=== PATIENT | female | born 1950 | race Caucasian/White ===

== ENCOUNTER 2020-09-02 18:31 | Inpatient (IN) | payer MEDICARE, OTHER ==
[~2020-09-02] VITALS: Ht 165.1 cm; Wt 60.3 kg
[2020-09-02 19:11] LABS: Basophils # (auto) 0.1 10 ^3/uL (0-0.2); Basophils % (auto) 0.9 % (0.0-2.0); Eosinophils # (auto) 0 10 ^3/uL (0-0.8); Eosinophils % (auto) 0.1 % (0.0-7.0); Hematocrit 32.9 % (36.0-46.0); Hemoglobin 10.9 g/dL (12.2-16.2); Lymphocytes # (auto) 0.2 10 ^3/uL (0.4-5.4); Lymphocytes % (auto) 1.4 % (10.0-50.0); Mean Corpuscular Hemoglobin 30.5 pg (28.0-32.0); Mean Corpuscular Hgb Conc. 33.1 g/dL (32.0-36.0); Mean Corpuscular Volume 92.1 fL (80.0-100.0); Monocytes # (auto) 0.5 10 ^3/uL (0-1.3); Monocytes % (auto) 3.7 % (0.0-12.0); Neutrophils # (auto) 12.5 10 ^3/uL (1.6-8.6); Neutrophils % (auto) 93.9 % (37.0-80.0); Platelet Count (auto) 237 10^3/uL (140-450); Red Blood Cells 3.58 10^6/uL (4.0-5.20); White Blood Cell 13.4 10^3/uL (4.4-10.8)
[2020-09-02 19:47] LABS: Albumin 3.3 g/dL (3.4-5.0); Anion Gap 11 (5-15); Blood Urea Nitrogen 22 mg/dL (7-18); Calcium 9.4 mg/dL (8.5-10.1); Carbon Dioxide 22 mmol/L (21-32); Chloride 96 mmol/L (98-107); Glucose 119 mg/dL (74-106); Potassium 3.6 mmol/L (3.5-5.1); Sodium 129 mmol/L (136-145)
[2020-09-02 19:54] LABS: Alanine Aminotransferase 18 U/L (13-56); Alkaline Phosphatase 49 U/L (45-117); Aspartate Aminotransferase 32 U/L (15-37); BUN/Creatinine Ratio 16.5; Bilirubin, Total 0.6 mg/dL (0.2-1.0); GFR African American 50 mL/min; GFR Non-African American 42 mL/min; Total Protein 6.9 g/dL (6.4-8.2)
[2020-09-02] MEDS ORDERED: cefTRIAXone 1GM/50ML D5W 50 ML IV ONE (20:15)
[2020-09-02] MEDS ORDERED: SODIUM CHLORIDE 0.9% 1,000 ML IV ONE (20:15)
[2020-09-02 20:47] LABS: Urine Bacteria FEW /hpf (None Seen); Urine Blood Negative /uL (Negative); Urine Specific Gravity 1.011 (1.001-1.035); Urine WBC 4 /hpf (0 - 5)
[2020-09-02] MEDS ORDERED: ACETAMINOPHEN 500 MG TAB PO PRN (22:30)
[2020-09-02] MEDS ORDERED: ACETAMINOPHEN 650 mg PER 20.3 mL UD GT ONE (22:30)
[2020-09-02] MEDS ORDERED: ACETAMINOPHEN 325 MG TAB PO ONE (22:30)
[2020-09-02] MEDS ORDERED: NITROGLYCERIN 0.4 MG SL TAB SL PRN (22:30)
[2020-09-02] MEDS ORDERED: DOCUSATE SOD 100 MG CAP PO PRN (22:30)
[2020-09-02] MEDS ORDERED: MORPHINE SULF INJ 2 MG/ML SYRINGE 1ML IV PRN (22:30)
[2020-09-02] MEDS ORDERED: SODIUM CHLORIDE 0.9% 1,000 ML IV SCH (22:30)
[2020-09-02 23:26] VITALS: BP 119/77
--- NOTE | 2020-09-02 23:26 | NUR ---
Telemetry admit from ER to [facility]- Unit BARRERA OLSEN admitted to Telemetry unit. Patient oriented to MARS AKHTAR, primary RN, unit, room, bed, and unit policies regarding patient care and visiting hours. Patient now on continuous telemetry monitoring, tele box # 6 and telemetry reading on arrival to unit is sinus tachycardiac. Patient is alert and oriented x4. Patient was able to ambulate from wheelchair to bed with stand by assistance. Patient reports chest tightness when breathing. Patient denies shortness of breath at this time. Patient is on 2L/min NC, SPO2: 96% at this time. No sign/symptoms of distress noted or verbalized at this time. Instructed on plan of care and encouraged patient to call for assistance as needed, patient verbalized understanding. Bed is locked in lowest position, side rails x 2 are up, call light is within reach, and bed alarm is on.
--- NOTE | 2020-09-02 23:40 | NUR ---
HOME MEDICATIONS [facility]. POM wristband placed on patient.
[2020-09-03] MEDS: HYDROcodone-ACET 5/325MG TAB PO PRN ×2 (00:05→04:40)
[2020-09-03] MEDS ORDERED: BUDE2SUS3 IN (00:29)
[2020-09-03] MEDS ORDERED: FERR18TA2 PO (00:29)
[2020-09-03] MEDS ORDERED: IBUP100S11 PO (00:29)
[2020-09-03] MEDS ORDERED: FENO145T27 PO (00:29)
[2020-09-03] MEDS ORDERED: LISI-285 PO (00:29)
[2020-09-03] MEDS ORDERED: ALBU2TAB4 IN (00:34)
[2020-09-03 00:37] VITALS: BP 119/77
--- NOTE | 2020-09-03 03:44 | NUR ---
PULMONARY CONSULT WAS ORDERED FOR DR. OMALLEY BUT SHE IS NOT CONSULTING TILL FRIDAY. DR. Gini MCCULLOGUH WAS CONSULTED INSTEAD.
[2020-09-03 05:00] VITALS: BP 98/60
[2020-09-03 05:08] LABS: Basophils # (auto) 0.1 10 ^3/uL (0-0.2); Basophils % (auto) 0.9 % (0.0-2.0); Eosinophils # (auto) 0 10 ^3/uL (0-0.8); Eosinophils % (auto) 0.1 % (0.0-7.0); Hematocrit 30.3 % (36.0-46.0); Hemoglobin 10.3 g/dL (12.2-16.2); Lymphocytes # (auto) 0.2 10 ^3/uL (0.4-5.4); Mean Corpuscular Hemoglobin 31.6 pg (28.0-32.0); Mean Corpuscular Hgb Conc. 34.2 g/dL (32.0-36.0); Mean Corpuscular Volume 92.5 fL (80.0-100.0); Monocytes # (auto) 0.8 10 ^3/uL (0-1.3); Neutrophils # (auto) 9.7 10 ^3/uL (1.6-8.6); Nucleated Red Blood Cells % 0.4 %; Platelet Count (auto) 222 10^3/uL (140-450); Red Blood Cells 3.27 10^6/uL (4.0-5.20); Red Cell Distribution Width 13.1 % (11.8-14.3); White Blood Cell 10.8 10^3/uL (4.4-10.8)
[2020-09-03 05:24] LABS: Albumin 2.8 g/dL (3.4-5.0); Calcium 8.7 mg/dL (8.5-10.1); Potassium 3.8 mmol/L (3.5-5.1)
[2020-09-03 05:29] LABS: BUN/Creatinine Ratio 18.2; Bilirubin, Total 0.5 mg/dL (0.2-1.0)
[2020-09-03] MEDS ORDERED: ALBUTEROL SULF HFA 90MCG INH 200DOSE IN SCH (06:00)
[2020-09-03] MEDS: MORPHINE SULFATE 4 MG/ML SYR/VIAL IV PRN ×2 (06:55→14:16)
[2020-09-03] MEDS: ONDANSETRON HCL 4 MG/2 ML VIAL IV PRN ×2 (06:55→12:13)
[2020-09-03 08:37] VITALS: BP 109/70
[2020-09-03] MEDS: DOXYCYCLINE 100MG/250ML 250 ML IV SCH ×2 (09:44→22:09)
[2020-09-03] MEDS: cefTRIAXone 1GM/50ML D5W 50 ML IV SCH (09:44)
[2020-09-03] MEDS: ENOXAPARIN SOD 40 MG/0.4 ML SYRINGE SC SCH (09:45)
[2020-09-03] MEDS: MULTIPLE VITAMIN TAB PO SCH (09:45)
[2020-09-03] MEDS ORDERED: ENOXAPARIN SOD 30 MG/0.3 ML SYRINGE SC SCH (10:00)
[2020-09-03] MEDS ORDERED: ASCORBIC ACID 1,000 MG TAB PO SCH (10:00)
[2020-09-03] MEDS ORDERED: DexAMETHasone SOD PHOS 10MG/1ML VIAL INJ IV SCH (10:00)
[2020-09-03] MEDS ORDERED: BUDESONIDE (INHALATION) 180 MCG IH IN SCH (10:00)
[2020-09-03] MEDS ORDERED: ZINC SULFATE 220mg CAP or TAB PO SCH (10:00)
[2020-09-03] MEDS ORDERED: CHOLECALCIFEROL (VITD3) 2,000 UNIT CAP PO SCH (10:00)
[2020-09-03] MEDS ORDERED: PANTOPRAZOLE 40 MG/10 ML VIAL INJ IV SCH (10:00)
--- NOTE | 2020-09-03 11:40 | NUR ---
RECEIVED REPORT FROM BRIGETTE Rubalcava RN.
--- NOTE | 2020-09-03 11:54 | NUR ---
PATIENT RECEIVED FROM THE [place] [address] ISOLATION UNIT.
--- NOTE | 2020-09-03 12:01 | NUR ---
MOVED TO ROOM 203 NO SIGNS OF DISTRESS. REPORT GIVE TO CHARLOTTE Posadas
--- NOTE | 2020-09-03 12:16 | NUR ---
PATIENT COMPLAINING OF NAUSEA. MEDICATED PER eMAR.
[2020-09-03 13:00] VITALS: BP 127/73
--- NOTE | 2020-09-03 13:00 | NUR ---
PATIENT TEMPERATURE ELEVATED. COOLING MEASURES INITIATED.
[2020-09-03] MEDS ORDERED: ACETYLCYSTEINE 10 %(100MG/ML) SOL 4ML NEB SCH (16:15)
[2020-09-03] MEDS ORDERED: IPRATROPIUM BROM 0.5 MG/2.5ML INH SOL NEB PRN (16:15)
[2020-09-03] MEDS ORDERED: ALBUTEROL SULF 2.5 MG/0.5ML(0.5%) NEB SOLN NEB PRN (16:15)
[2020-09-03 16:24] VITALS: BP 101/62
[2020-09-03] MEDS: ALBUTEROL SULF 2.5 MG/0.5ML(0.5%) NEB SOLN NEB SCH (18:57)
[2020-09-03] MEDS: IPRATROPIUM BROM 0.5 MG/2.5ML INH SOL NEB SCH (18:57)
[2020-09-03 22:20] VITALS: BP 97/64
[2020-09-04] MEDS: ACETYLCYSTEINE 10 %(100MG/ML) SOL 4ML NEB SCH ×4 (00:33→21:44)
[2020-09-04] MEDS: IPRATROPIUM BROM 0.5 MG/2.5ML INH SOL NEB SCH ×4 (00:33→21:43)
[2020-09-04] MEDS: ALBUTEROL SULF 2.5 MG/0.5ML(0.5%) NEB SOLN NEB SCH ×4 (00:34→21:43)
[2020-09-04 05:16] VITALS: BP 110/67
[2020-09-04 08:19] VITALS: BP 108/75
--- NOTE | 2020-09-04 09:15 | NUR ---
RESPIRATORY CULTURE OBTAINED AND SENT TO LAB
[2020-09-04] MEDS: DOXYCYCLINE 100MG/250ML 250 ML IV SCH ×2 (09:30→22:11)
[2020-09-04] MEDS: cefTRIAXone 1GM/50ML D5W 50 ML IV SCH (09:30)
[2020-09-04] MEDS: ENOXAPARIN SOD 40 MG/0.4 ML SYRINGE SC SCH (09:30)
[2020-09-04] MEDS: MULTIPLE VITAMIN TAB PO SCH (09:30)
[2020-09-04] MEDS ORDERED: ACETAMINOPHEN 325 MG TAB PO PRN (10:00)
--- NOTE | 2020-09-04 10:23 | NUR ---
HOME MEDICATIONS TAKEN TO PHARMACY
--- NOTE | 2020-09-04 11:15 | NUR ---
ss consult Per consult info on advanced directive. Patient has been provided with advanced directive. Addendum: 09/04/20 at 1117 by Tran Husain Amended: Links added.
[2020-09-04 11:54] VITALS: BP 105/70
[2020-09-04] MEDS ORDERED: SODIUM CHLORIDE 0.9% 1,000 ML IV ONE (13:45)
[2020-09-04] MEDS ORDERED: IOHEXOL 300 MG/ML 100ML BOTTLE IJ ONE (15:09)
[2020-09-04 16:41] VITALS: BP 123/84
[2020-09-04 22:00] VITALS: BP 106/69
[2020-09-05] MEDS: IPRATROPIUM BROM 0.5 MG/2.5ML INH SOL NEB SCH ×5 (01:20→23:58)
[2020-09-05] MEDS: ALBUTEROL SULF 2.5 MG/0.5ML(0.5%) NEB SOLN NEB SCH ×5 (01:20→23:58)
[2020-09-05] MEDS: ACETYLCYSTEINE 10 %(100MG/ML) SOL 4ML NEB SCH ×5 (01:21→23:58)
[2020-09-05 05:00] VITALS: BP 117/78
[2020-09-05 05:38] LABS: Basophils # (auto) 0 10 ^3/uL (0-0.2); Basophils % (auto) 0.2 % (0.0-2.0); Eosinophils # (auto) 0.1 10 ^3/uL (0-0.8); Eosinophils % (auto) 2.3 % (0.0-7.0); Hematocrit 27.5 % (36.0-46.0); Hemoglobin 9.4 g/dL (12.2-16.2); Lymphocytes # (auto) 0.7 10 ^3/uL (0.4-5.4); Lymphocytes % (auto) 12.6 % (10.0-50.0); Mean Corpuscular Hemoglobin 31.3 pg (28.0-32.0); Mean Corpuscular Hgb Conc. 34.2 g/dL (32.0-36.0); Mean Corpuscular Volume 91.5 fL (80.0-100.0); Monocytes # (auto) 0.7 10 ^3/uL (0-1.3); Monocytes % (auto) 11.6 % (0.0-12.0); Neutrophils # (auto) 4.1 10 ^3/uL (1.6-8.6); Neutrophils % (auto) 73.3 % (37.0-80.0); Nucleated Red Blood Cells % 0.1 %; Platelet Count (auto) 237 10^3/uL (140-450); Red Cell Distribution Width 13.4 % (11.8-14.3); White Blood Cell 5.6 10^3/uL (4.4-10.8)
[2020-09-05 05:55] LABS: BUN/Creatinine Ratio 21.8; Calcium 8.7 mg/dL (8.5-10.1); Potassium 3.8 mmol/L (3.5-5.1)
[2020-09-05 05:57] LABS: % Iron Saturation 18.4 % (15-50)
[2020-09-05 06:04] LABS: INR 0.96 (0.9-1.15); Partial Thromboplastin Time 34.5 sec (23.0-31.2)
[2020-09-05] MEDS: cefTRIAXone 1GM/50ML D5W 50 ML IV SCH (08:04)
[2020-09-05 08:05] VITALS: BP 114/71
--- NOTE | 2020-09-05 08:05 | NUR ---
Scheduled IV abx given per order. Patient resting comfortably in bed with no complaint of pain at this time. Patient stable.
[2020-09-05 08:18] VITALS: BP 114/71
[2020-09-05] MEDS: DOXYCYCLINE 100MG/250ML 250 ML IV SCH ×2 (09:08→22:34)
[2020-09-05] MEDS: MULTIPLE VITAMIN TAB PO SCH (09:08)
[2020-09-05] MEDS: ENOXAPARIN SOD 40 MG/0.4 ML SYRINGE SC SCH (09:09)
--- NOTE | 2020-09-05 09:10 | NUR ---
Scheduled IV abx, po med, and subcutaneous medications given per order. Patient stable at this time.
--- NOTE | 2020-09-05 11:05 | NUR ---
Patient stable with Dr. Rodriguez at bedside.
[2020-09-05 12:11] VITALS: BP 115/79
--- NOTE | 2020-09-05 12:20 | NUR ---
Patient resting comfortably in bed; denies any pain. Patient stable at this time.
--- NOTE | 2020-09-05 12:53 | NUR ---
Assuming Care Assuming care of patient at this time. Report received. Will continue care.
[2020-09-05 17:08] VITALS: BP 115/78
--- NOTE | 2020-09-05 19:30 | NUR ---
Closing Shift Note Patient resting in bed. No distress noted. Will give report and endorse care to the log roper RN.
--- NOTE | 2020-09-05 19:50 | NUR ---
Opening Shift Note Assumed care of patient. Awake, alert and oriented x4. No S/S of distress/SOB or pain. Pt is on 2L NC with even and unlabored respirations. Instructed on POC and to call for assist PRN. Bed locked, in lowest position, call light within reach, side rails up x2. Will continue to monitor for changes Q1hr and PRN.
[2020-09-05 21:37] VITALS: BP 108/71
[2020-09-06 01:00] VITALS: BP 108/71
[2020-09-06] MEDS: HYDROcodone-ACET 5/325MG TAB PO PRN ×2 (03:30→22:49)
--- NOTE | 2020-09-06 06:16 | NUR ---
changed from oxymizer to; karine 2lpm 98%
[2020-09-06] MEDS: ALBUTEROL SULF 2.5 MG/0.5ML(0.5%) NEB SOLN NEB SCH ×3 (06:19→18:10)
[2020-09-06] MEDS: IPRATROPIUM BROM 0.5 MG/2.5ML INH SOL NEB SCH ×3 (06:20→18:10)
[2020-09-06] MEDS: ACETYLCYSTEINE 10 %(100MG/ML) SOL 4ML NEB SCH ×3 (06:20→18:09)
--- NOTE | 2020-09-06 08:00 | NUR ---
IV SITE TO LEFT FORE ARM INFILTRATED,PINK AND SWOLLEN,DISCONTINUED,STARTED g#20 TO LEFT WRIST BY KESHAV MCNEIL
[2020-09-06 08:45] VITALS: BP 117/74
[2020-09-06] MEDS ORDERED: POTASSIUM CHL 10 Meq TABLET PO ONE (09:15)
[2020-09-06] MEDS ORDERED: FUROSEMIDE 40 MG/4 ML VIAL IV ONE (09:15)
[2020-09-06] MEDS: cefTRIAXone 1GM/50ML D5W 50 ML IV SCH (09:34)
[2020-09-06] MEDS: DOXYCYCLINE 100MG/250ML 250 ML IV SCH ×2 (10:15→22:00)
[2020-09-06] MEDS: ENOXAPARIN SOD 40 MG/0.4 ML SYRINGE SC SCH (10:16)
[2020-09-06] MEDS: MULTIPLE VITAMIN TAB PO SCH (10:17)
--- NOTE | 2020-09-06 11:19 | NUR ---
Assessment The patient is a 70 years old female, who is alert and oriented and her emotional status is stable, patient cognitive abilities are intact. Patient states that she can do all ADLs and ambulates independently. She receives social security as income. Patient lives with her (Jesus [phone]), patient will return home post discharge, her will provide transportation post discharge. Patient stated that her is her support system. Patient is receptive to receive POA forms. Discharge planning: Patient has no post discharge needs to identify at this moment. Addendum: 09/06/20 at 1119 by JACKIE LU Amended: Links added.
--- NOTE | 2020-09-06 12:11 | NUR ---
Nutrition Assessment Notes Please refer to link for full assessment notes. Est Energy needs: 6329-0740 kcals (20-23 kcal/kgBW) Est Protein needs: 63-69 gms/day (1.0-1.1 gm/kgBW) Will continue to monitor and reassess prn. Addendum: 09/06/20 at [address] Amended: Links added.
[2020-09-06 12:18] VITALS: BP 114/74
[2020-09-06] MEDS: FERROUS SULFATE 325 MG TAB PO SCH (12:45)
[2020-09-06 16:52] VITALS: BP 116/72
--- NOTE | 2020-09-06 18:30 | NUR ---
Respiratory note: BUBBLE HUMIDIFIER ADDED TO OXYGEN FOR PT COMFORT. PT STATES HER NOSE IS DRY AND REQUESTED ADDED MOISTURE.
[2020-09-06 22:00] VITALS: BP 118/77
[2020-09-07] MEDS: IPRATROPIUM BROM 0.5 MG/2.5ML INH SOL NEB SCH ×3 (00:30→12:00)
[2020-09-07] MEDS: ALBUTEROL SULF 2.5 MG/0.5ML(0.5%) NEB SOLN NEB SCH ×3 (00:30→12:00)
[2020-09-07] MEDS: ACETYLCYSTEINE 10 %(100MG/ML) SOL 4ML NEB SCH ×3 (00:30→12:00)
[2020-09-07 05:30] VITALS: BP 114/78
[2020-09-07 05:31] LABS: Hematocrit 29.4 % (36.0-46.0); Hemoglobin 9.9 g/dL (12.2-16.2)
[2020-09-07 05:47] LABS: BUN/Creatinine Ratio 16.4; Calcium 9.5 mg/dL (8.5-10.1); Potassium 3.8 mmol/L (3.5-5.1)
--- NOTE | 2020-09-07 07:16 | NUR ---
PT RESTED WELL THROUGHOUT THE NIGHT WITH NO DISTRESS NOTED. CALL LIGHT IN REACH.
[2020-09-07 09:00] VITALS: BP 117/75
[2020-09-07] MEDS: cefTRIAXone 1GM/50ML D5W 50 ML IV SCH (09:26)
[2020-09-07] MEDS: ENOXAPARIN SOD 40 MG/0.4 ML SYRINGE SC SCH (09:26)
[2020-09-07] MEDS: MULTIPLE VITAMIN TAB PO SCH (09:26)
--- NOTE | 2020-09-07 09:30 | NUR ---
PLACED ON ROOM AIR, O2 SATURATION CHECKED AFTER 30 MINUTES,SATURATING 93%
[2020-09-07] MEDS: HYDROcodone-ACET 5/325MG TAB PO PRN (09:37)
--- NOTE | 2020-09-07 10:30 | NUR ---
MD VISIT DR. PERAZA HERE TO SEE AND EXAMINED PATIENT,INFORMED OF ROOM AIR SATURATION OF 93% ON ROOM AIR.
[2020-09-07] MEDS ORDERED: DOXY-340 PO (10:33)
--- NOTE | 2020-09-07 10:40 | NUR ---
PATIENT STATED WILL BE PICKED UP BY FRIEND AFTER 3:30 PM
[2020-09-07] MEDS: DOXYCYCLINE 100MG/250ML 250 ML IV SCH (11:42)
[2020-09-07] MEDS: FERROUS SULFATE 325 MG TAB PO SCH (11:42)
[2020-09-07 13:00] VITALS: BP 112/76
[2020-09-07] MEDS ORDERED: LIDOCAINE VISCOUS 2% 15ML UD ONE (13:31)
[2020-09-07] MEDS ORDERED: MIDAZOLAM HCL 1MG/1ML-2 ML VIAL ONE (13:31)
[2020-09-07] MEDS ORDERED: fentaNYL CITRATE 100 MCG/2 ML VL ONE (13:31)
--- NOTE | 2020-09-07 15:45 | NUR ---
Discharge instructions given as ordered. Encourage to follow up with PMD as instructed. All questions and concerns addressed. Patient verbalized understanding. Medication reconciliation form completed and copy given to patient. IV removed with catheter intact, pressure dressing applied,IS provided and instructed of use,discharge Instruction packet Faxed to dr. Leal's office [phone], Patient taken to vehicle via wheelchair with all personal belongings, accompanied by staff and friend who is at the main lobby waiting. No distress noted at time of departure.
== END 2020-09-07 16:00 | disposition home or self-care (01) | DRG 871 ==
LOC: EDBD 18:31 → ER 18:31 → TELE 18:32 → TELE-EAST 23:40 → CENTRAL 09-03 11:40
PROVIDERS: ADMIT Nurse Practitioner Family; ATTEND Internal Medicine
DX: A41.9 Sepsis, unspecified organism (principal); J18.9 Pneumonia, unspecified organism; E43 Unspecified severe protein-calorie malnutrition; J96.01 Acute respiratory failure with hypoxia; I50.31 Acute diastolic (congestive) heart failure; N17.9 Acute kidney failure, unspecified; E87.1 Hypo-osmolality and hyponatremia; J98.11 Atelectasis; I11.0 Hypertensive heart disease with heart failure; Z20.828 Contact with and (suspected) exposure to other viral communicable diseases; E78.5 Hyperlipidemia, unspecified; D50.9 Iron deficiency anemia, unspecified; I88.9 Nonspecific lymphadenitis, unspecified; F32.9 Major depressive disorder, single episode, unspecified; Z82.49 Family history of ischemic heart disease and other diseases of the circulatory system
CPT/HCPCS: 36415; 71045; 71250; 71260; 74177; 80048; 80053; 81001; 82270; 83540; 83550; 83605; 83735; 83880; 84484; 85014; 85018; 85025; 85610; 85730; 87040; 87070; 87205; 87426; 93005; 93306; 94640; 96361; 96365; C9113; G0378; J0696; J1100; J2250; J2405; J3490

== ENCOUNTER 2022-06-01 15:32 | Emergency (ER) | payer MEDICARE, OTHER ==
[~2022-06-01] VITALS: Ht 157.5 cm; Wt 52.7 kg
[~2022-06-01 15:32] MED LIST: ALBU2TAB4 IN; BUDE2SUS3 IN; DOXY-340 PO; FENO145T27 PO; FERR18TA2 PO; LISI-285 PO
[2022-06-01 17:07] LABS: Urine Bacteria FEW /hpf (None Seen); Urine Blood Negative /uL (Negative); Urine Specific Gravity 1.009 (1.001-1.035); Urine WBC 2 /hpf (0 - 5)
[2022-06-01] MEDS ORDERED: LACTATED RINGER'S 1,000 ML IV ONE (18:15)
[2022-06-01] MEDS ORDERED: ALUM & MAG HYDROX-SIMETH LIQ(MAALOX) 30 ML PO ONE (18:15)
[2022-06-01] MEDS ORDERED: FAMOTIDINE (10MG/ML) 2ML VL IV ONE (18:15)
[2022-06-01] MEDS ORDERED: ONDANSETRON HCL 4 MG/2 ML VIAL IV ONE (18:15)
[2022-06-01 18:47] LABS: Basophils # (auto) 0 10 ^3/uL (0-0.2); Basophils % (auto) 0.2 % (0.0-2.0); Eosinophils # (auto) 0.1 10 ^3/uL (0-0.8); Eosinophils % (auto) 0.6 % (0.0-7.0); Hematocrit 28.6 % (36.0-46.0); Hemoglobin 9.5 g/dL (12.2-16.2); Lymphocytes # (auto) 0.7 10 ^3/uL (0.4-5.4); Mean Corpuscular Hemoglobin 30.5 pg (28.0-32.0); Mean Corpuscular Hgb Conc. 33.4 g/dL (32.0-36.0); Mean Corpuscular Volume 91.3 fL (80.0-100.0); Monocytes # (auto) 0.7 10 ^3/uL (0-1.3); Monocytes % (auto) 6.8 % (0.0-12.0); Neutrophils # (auto) 9.5 10 ^3/uL (1.6-8.6); Neutrophils % (auto) 86.4 % (37.0-80.0); Red Blood Cells 3.13 10^6/uL (4.0-5.20); Red Cell Distribution Width 12.5 % (11.8-14.3)
[2022-06-01 18:53] LABS: INR 0.99 (0.9-1.15); Partial Thromboplastin Time 31.3 sec (24.6-33.4)
[2022-06-01 19:03] LABS: Albumin 3.5 g/dL (3.4-5.0); BUN/Creatinine Ratio 23.4; Calcium 9.1 mg/dL (8.5-10.1); Magnesium 2.4 mg/dL (1.6-2.6); Potassium 3.9 mmol/L (3.5-5.1)
[2022-06-01 19:05] LABS: Bilirubin, Total 0.6 mg/dL (0.2-1.0); Total Protein 7.2 g/dL (6.4-8.2)
[2022-06-01] MEDS ORDERED: cefTRIAXone 1GM/50ML D5W 50 ML IV ONE (21:15)
[2022-06-01] MEDS ORDERED: IOHEXOL 300 MG/ML 100ML BOTTLE IJ ONE (23:40)
[2022-06-02] MEDS ORDERED: CIPR-173 PO (05:27)
[2022-06-02 06:16] VITALS: BP 106/68
== END 2022-06-02 06:16 | disposition still patient (30) ==
LOC: ER 15:32
DX: R10.10 Upper abdominal pain, unspecified (principal); R10.13 Epigastric pain; I10 Essential (primary) hypertension; E78.5 Hyperlipidemia, unspecified; Z79.2 Long term (current) use of antibiotics; Z79.899 Other long term (current) drug therapy
CPT/HCPCS: 36415; 74177; 80053; 81001; 83605; 83690; 83735; 84484; 85025; 85610; 85730; 93005; 96361; 96365; 96375; 99285; J0696; J2405; J3490; J7030; Q9967

== ENCOUNTER 2023-03-14 07:22 | Inpatient (IN) | payer MEDICARE, OTHER ==
[~2023-03-14] VITALS: Ht 154.9 cm; Wt 57.7 kg
[~2023-03-14 07:22] MED LIST changes: +ALBU2TAB11 IN; -ALBU2TAB4 IN; +CIPR-173 PO; -DOXY-340 PO; +DOXY1CAP57 PO
[2023-03-14 07:38] LABS: Basophils # (auto) 0 10 ^3/uL (0-0.2); Basophils % (auto) 0.1 % (0.0-2.0); Eosinophils # (auto) 0.1 10 ^3/uL (0-0.8); Eosinophils % (auto) 0.9 % (0.0-7.0); Hematocrit 31.7 % (36.0-46.0); Hemoglobin 10.5 g/dL (12.2-16.2); Lymphocytes # (auto) 0.1 10 ^3/uL (0.4-5.4); Lymphocytes % (auto) 1.2 % (10.0-50.0); Mean Corpuscular Hemoglobin 30.9 pg (28.0-32.0); Mean Corpuscular Volume 93.6 fL (80.0-100.0); Monocytes # (auto) 0.3 10 ^3/uL (0-1.3); Monocytes % (auto) 2.7 % (0.0-12.0); Neutrophils % (auto) 95.1 % (37.0-80.0); Nucleated Red Blood Cells % 0.1 %; Red Blood Cells 3.39 10^6/uL (4.0-5.20); Red Cell Distribution Width 13.8 % (11.8-14.3); White Blood Cell 11.6 10^3/uL (4.4-10.8)
[2023-03-14] MEDS ORDERED: SODIUM CHLORIDE 0.9% 1,000 ML IV ONE (07:45)
[2023-03-14] MEDS ORDERED: ASPirin 325 MG TAB PO ONE (08:00)
[2023-03-14 08:02] LABS: Albumin 3.8 g/dL (3.4-5.0); Calcium 10.4 mg/dL (8.5-10.1); Potassium 3.4 mmol/L (3.5-5.1)
[2023-03-14 08:07] LABS: BUN/Creatinine Ratio 15.2 (10.0-20.0); Bilirubin, Total 0.6 mg/dL (0.2-1.0); Total Protein 6.8 g/dL (6.4-8.2)
[2023-03-14] MEDS ORDERED: PIPERACILLIN-TAZOB 3.375GM 100 ML IV ONE (08:45)
[2023-03-14 08:48] LABS: Partial Thromboplastin Time 28.5 sec (24.6-33.4)
[2023-03-14] MEDS ORDERED: SODIUM CHLORIDE 0.9% 1,000 ML IV SCH (12:30)
[2023-03-14] MEDS ORDERED: NITROGLYCERIN 0.4 MG SL TAB SL PRN (12:30)
[2023-03-14] MEDS ORDERED: MORPHINE SULFATE INJ 2 MG/ml SYRG IV PRN (12:30)
[2023-03-14 12:48] LABS: Cholesterol 100 mg/dL (< 200)
[2023-03-14 12:51] LABS: HDL Cholesterol 56 mg/dL (40-59); LDL Cholesterol 36 mg/dL (< 100); Triglycerides 81 mg/dL (< 150)
[2023-03-14 12:52] LABS: Urine Bacteria NONE SEEN /hpf (None Seen); Urine Blood Negative /uL (Negative); Urine Hyaline Cast MANY /lpf (0 - 2); Urine WBC 8 /hpf (0 - 5); Urine WBC Clumps PRESENT /hpf (None Seen)
[2023-03-14 13:08] LABS: Alcohol, Urine < 3.0 mg/dL (0-10); Barbiturate Scree,Urine NEGATIVE (NEGATIVE); Benzodiazephine Screen, Urine NEGATIVE (NEGATIVE); Cannabinoid Screen, Urine NEGATIVE (NEGATIVE); Cocaine Screen, Urine NEGATIVE (NEGATIVE); Phencyclidine Screen, Urine NEGATIVE (NEGATIVE)
[2023-03-14 13:10] LABS: Amphetamine Screen, Urine NEGATIVE (NEGATIVE); Opiate Scree,Urine NEGATIVE (NEGATIVE)
[2023-03-14] MEDS: cefTRIAXone 1GM/50ML D5W 50 ML IV SCH (13:50)
[2023-03-14] MEDS: SODIUM CHLORIDE 0.9% 1,000 ML IV SCH (13:50)
[2023-03-14 14:03] VITALS: BP 106/60
[2023-03-14] MEDS: ACETAMINOPHEN 325 MG TAB PO PRN (19:34)
[2023-03-14] MEDS: ALBUTEROL SULF 2.5 MG/0.5ML(0.5%) NEB SOLN NEB PRN (19:47)
[2023-03-14] MEDS ORDERED: PIPERACILLIN-TAZOB 3.375GM 100 ML IV SCH (22:00)
[2023-03-14] MEDS ORDERED: POTASSIUM CHL 20 Meq TABLET PO ONE (22:30)
[2023-03-14] MEDS ORDERED: SODIUM CHLORIDE 0.9% 500 ML IV ONE ×2 (22:30→23:30)
[2023-03-14] MEDS ORDERED: MIDODRINE HCL 10 MG TAB PO ONE (23:30)
[2023-03-14] MEDS: ATORVASTATIN 20 MG TAB PO SCH (23:40)
[2023-03-14] MEDS: HEPARIN SODIUM (PORCINE) 5000 UNITS/ML 1ML VIAL SC SCH (23:41)
[2023-03-15] MEDS ORDERED: NOREPINEPHRINE 8 MG/250ML KIT 250 ML IV ONE (01:27)
[2023-03-15] MEDS ORDERED: NOREPINEPHRINE 8 MG/250ML KIT 250 ML IV SCH (01:30)
[2023-03-15 05:10] LABS: Basophils # (auto) 0 10 ^3/uL (0-0.2); Basophils % (auto) 0.1 % (0.0-2.0); Eosinophils # (auto) 0.8 10 ^3/uL (0-0.8); Eosinophils % (auto) 7.7 % (0.0-7.0); Hematocrit 26.5 % (36.0-46.0); Hemoglobin 9.1 g/dL (12.2-16.2); Lymphocytes # (auto) 0.4 10 ^3/uL (0.4-5.4); Lymphocytes % (auto) 3.9 % (10.0-50.0); Mean Corpuscular Hgb Conc. 34.3 g/dL (32.0-36.0); Mean Corpuscular Volume 93.1 fL (80.0-100.0); Monocytes # (auto) 0.8 10 ^3/uL (0-1.3); Neutrophils % (auto) 80.3 % (37.0-80.0); Red Blood Cells 2.85 10^6/uL (4.0-5.20); Red Cell Distribution Width 13.8 % (11.8-14.3)
[2023-03-15 05:17] LABS: Potassium 4.2 mmol/L (3.5-5.1)
[2023-03-15 05:21] LABS: Uric Acid 7.3 mg/dL (2.6-6.0)
[2023-03-15 05:25] LABS: Albumin 2.3 g/dL (3.4-5.0); BUN/Creatinine Ratio 15.4 (10.0-20.0); Calcium 8.8 mg/dL (8.5-10.1)
[2023-03-15 05:27] LABS: Bilirubin, Total 0.4 mg/dL (0.2-1.0); Phosphorus 3.6 mg/dL (2.5-4.90); Total Protein 5.5 g/dL (6.4-8.2)
[2023-03-15] MEDS: ALBUTEROL SULF 2.5 MG/0.5ML(0.5%) NEB SOLN NEB PRN (05:43)
[2023-03-15] MEDS: MIDODRINE HCL 10 MG TAB PO SCH ×3 (06:14→18:42)
[2023-03-15] MEDS: ACETAMINOPHEN 325 MG TAB PO PRN (06:22)
[2023-03-15] MEDS: ASPirin 81 mg TAB PO SCH (08:32)
[2023-03-15] MEDS: HEPARIN SODIUM (PORCINE) 5000 UNITS/ML 1ML VIAL SC SCH ×2 (08:33→21:30)
[2023-03-15] MEDS: cefTRIAXone 1GM/50ML D5W 50 ML IV SCH (08:34)
[2023-03-15] MEDS: FERROUS FUMARATE 18 MG PO SCH (08:35)
[2023-03-15] MEDS: LISINOPRIL 20 MG TAB PO SCH (08:35)
[2023-03-15] MEDS: HCTZ 25 MG TAB PO SCH (08:35)
[2023-03-15] MEDS: SODIUM CHLORIDE 0.9% 1,000 ML IV SCH (08:36)
[2023-03-15 11:45] VITALS: BP 109/70
[2023-03-15] MEDS ORDERED: SODIUM CHLORIDE 0.9% 500 ML IV ONE (12:15)
[2023-03-15 13:19] LABS: Urine Bacteria FEW /hpf (None Seen); Urine Blood 1+ /uL (Negative); Urine Mucus FEW (None Seen); Urine Specific Gravity 1.007 (1.001-1.035); Urine WBC 6 /hpf (0 - 5)
[2023-03-15] MEDS: ATORVASTATIN 20 MG TAB PO SCH (21:26)
[2023-03-16 01:18] VITALS: BP 109/70
[2023-03-16 05:00] VITALS: BP 105/64
[2023-03-16] MEDS: ACETAMINOPHEN 325 MG TAB PO PRN (06:17)
[2023-03-16] MEDS: MIDODRINE HCL 10 MG TAB PO SCH ×3 (06:17→18:13)
[2023-03-16] MEDS: SODIUM CHLORIDE 0.9% 1,000 ML IV SCH (06:24)
[2023-03-16 07:06] LABS: Immunoglobulin G, Serum 980 mg/dL (586-1602)
[2023-03-16 09:00] VITALS: BP 127/78
[2023-03-16] MEDS: cefTRIAXone 1GM/50ML D5W 50 ML IV SCH (09:20)
[2023-03-16] MEDS: FERROUS FUMARATE 18 MG PO SCH (10:00)
[2023-03-16] MEDS: LISINOPRIL 20 MG TAB PO SCH (10:03)
[2023-03-16] MEDS: ASPirin 81 mg TAB PO SCH (10:04)
[2023-03-16] MEDS: HCTZ 25 MG TAB PO SCH (10:05)
[2023-03-16] MEDS: HEPARIN SODIUM (PORCINE) 5000 UNITS/ML 1ML VIAL SC SCH ×2 (10:14→21:11)
[2023-03-16 13:11] VITALS: BP 100/64
[2023-03-16] MEDS: metroNIDAZOLE 500MG/100ML 100 ML IV SCH ×2 (15:54→21:11)
[2023-03-16 17:00] VITALS: BP 127/83
[2023-03-16] MEDS: VANCOMYCIN HCL 125MG/5ML ORAL SOL PO SCH (18:13)
[2023-03-16] MEDS: ATORVASTATIN 20 MG TAB PO SCH (21:11)
[2023-03-16] MEDS: ALBUTEROL SULF 2.5 MG/0.5ML(0.5%) NEB SOLN NEB PRN ×2 (22:34→23:20)
[2023-03-16 23:31] LABS: Urine Bacteria NONE SEEN /hpf (None Seen); Urine Blood Negative /uL (Negative); Urine Specific Gravity 1.007 (1.001-1.035); Urine WBC 1 /hpf (0 - 5)
[2023-03-17] MEDS: VANCOMYCIN HCL 125MG/5ML ORAL SOL PO SCH ×5 (00:04→23:18)
[2023-03-17 05:28] LABS: Red Cell Distribution Width 13.5 % (11.8-14.3)
[2023-03-17 05:32] LABS: Hematocrit 24.2 % (36.0-46.0); Hemoglobin 8.3 g/dL (12.2-16.2); Mean Corpuscular Hemoglobin 31.6 pg (28.0-32.0); Mean Corpuscular Hgb Conc. 34.2 g/dL (32.0-36.0); Mean Corpuscular Volume 92.5 fL (80.0-100.0); Red Blood Cells 2.61 10^6/uL (4.0-5.20); White Blood Cell 4.2 10^3/uL (4.4-10.8)
[2023-03-17] MEDS: metroNIDAZOLE 500MG/100ML 100 ML IV SCH ×3 (05:40→22:38)
[2023-03-17] MEDS: MIDODRINE HCL 10 MG TAB PO SCH ×3 (05:40→18:33)
[2023-03-17 05:41] LABS: BUN/Creatinine Ratio 16.5 (10.0-20.0); Calcium 9.8 mg/dL (8.5-10.1); Potassium 3.7 mmol/L (3.5-5.1)
[2023-03-17] MEDS: SODIUM CHLORIDE 0.9% 1,000 ML IV SCH ×2 (05:41→22:38)
[2023-03-17 06:09] LABS: Basophils % (manual) 0 (0.0-2.0); Blast Cells 0; Metamyelocytes % 0; Myelocytes % 0; Promyelocytes % 0; Reactive Lymphocytes 0
[2023-03-17 07:08] LABS: Band Neutrophils % (manual) 6; Eosinophils % (manual) 12 (0-7); Lymphocytes % (manual) 21 (10.0-50.0); Monocytes % (manual) 10 (0-12)
[2023-03-17 09:14] VITALS: BP 107/63
[2023-03-17] MEDS: ASPirin 81 mg TAB PO SCH (09:24)
[2023-03-17] MEDS: cefTRIAXone 1GM/50ML D5W 50 ML IV SCH (09:24)
[2023-03-17] MEDS: HCTZ 25 MG TAB PO SCH (09:25)
[2023-03-17] MEDS: LISINOPRIL 20 MG TAB PO SCH (09:25)
[2023-03-17] MEDS: HEPARIN SODIUM (PORCINE) 5000 UNITS/ML 1ML VIAL SC SCH ×2 (09:28→22:36)
[2023-03-17] MEDS: FERROUS FUMARATE 18 MG PO SCH (10:00)
[2023-03-17 12:20] VITALS: BP 109/68
[2023-03-17 14:00] VITALS: BP 109/68
[2023-03-17] MEDS ORDERED: CHOLESTYRAMINE 4 GM POWDER GT ONE (14:15)
[2023-03-17 16:55] VITALS: BP 137/82
[2023-03-17 22:00] VITALS: BP 117/72
[2023-03-17] MEDS: ATORVASTATIN 20 MG TAB PO SCH (22:38)
[2023-03-18 05:10] VITALS: BP 109/69
[2023-03-18] MEDS: MIDODRINE HCL 10 MG TAB PO SCH ×2 (05:45→12:00)
[2023-03-18] MEDS: metroNIDAZOLE 500MG/100ML 100 ML IV SCH (05:45)
[2023-03-18] MEDS: VANCOMYCIN HCL 125MG/5ML ORAL SOL PO SCH ×2 (05:45→12:00)
[2023-03-18 09:00] VITALS: BP 132/69
[2023-03-18] MEDS ORDERED: METR500T PO (09:14)
[2023-03-18] MEDS ORDERED: LEVO500T31 PO (09:14)
[2023-03-18] MEDS ORDERED: VANC250PO PO (09:14)
[2023-03-18] MEDS: HEPARIN SODIUM (PORCINE) 5000 UNITS/ML 1ML VIAL SC SCH (09:19)
[2023-03-18] MEDS: cefTRIAXone 1GM/50ML D5W 50 ML IV SCH (09:19)
[2023-03-18] MEDS: HCTZ 25 MG TAB PO SCH (09:20)
[2023-03-18] MEDS: LISINOPRIL 20 MG TAB PO SCH (09:20)
[2023-03-18] MEDS: FERROUS FUMARATE 18 MG PO SCH (09:21)
[2023-03-18] MEDS: ASPirin 81 mg TAB PO SCH (09:22)
== END 2023-03-18 12:15 | disposition home or self-care (01) | DRG 313 ==
LOC: ER 07:22 → TELE 12:23 → TELE-EAST 03-15 23:33
PROVIDERS: ADMIT Nurse Practitioner Family; ATTEND Family Medicine
DX: R07.9 Chest pain, unspecified (principal); N17.0 Acute kidney failure with tubular necrosis; N39.0 Urinary tract infection, site not specified; A04.72 Enterocolitis due to Clostridium difficile, not specified as recurrent; N18.4 Chronic kidney disease, stage 4 (severe); I95.9 Hypotension, unspecified; J45.909 Unspecified asthma, uncomplicated; I12.9 Hypertensive chronic kidney disease with stage 1 through stage 4 chronic kidney disease, or unspecified chronic kidney disease; E78.00 Pure hypercholesterolemia, unspecified; G89.29 Other chronic pain; Z82.49 Family history of ischemic heart disease and other diseases of the circulatory system; Z79.899 Other long term (current) drug therapy; M94.0 Chondrocostal junction syndrome [Tietze]
CPT/HCPCS: 36415; 71045; 76775; 78582; 80048; 80053; 80061; 80307; 81001; 82570; 82784; 83036; 83605; 83690; 83880; 83930; 84100; 84156; 84166; 84300; 84443; 84484; 84550; 85007; 85025; 85027; 85379; 85610; 85730; 86334; 87040; 87045; 87086; 87177; 87427; 87493; 93005; 93306; 93970; 94640; 96361; 96365; G0378; J0696; J2543; J3490

== ENCOUNTER 2023-03-23 18:10 | Inpatient (IN) | payer MEDICARE, OTHER ==
[~2023-03-23] VITALS: Ht 154.9 cm; Wt 55.0 kg
[~2023-03-23 18:10] MED LIST changes: +LEVO500T31 PO; -LISI-285 PO; +METR500T PO; +VANC250PO PO
[2023-03-23 19:03] LABS: Basophils # (auto) 0 10 ^3/uL (0-0.2); Basophils % (auto) 0.3 % (0.0-2.0); Eosinophils # (auto) 0.3 10 ^3/uL (0-0.8); Eosinophils % (auto) 3.5 % (0.0-7.0); Hematocrit 28.1 % (36.0-46.0); Hemoglobin 9.5 g/dL (12.2-16.2); Lymphocytes # (auto) 0.9 10 ^3/uL (0.4-5.4); Lymphocytes % (auto) 9.8 % (10.0-50.0); Mean Corpuscular Hemoglobin 30.8 pg (28.0-32.0); Mean Corpuscular Hgb Conc. 33.9 g/dL (32.0-36.0); Mean Corpuscular Volume 90.8 fL (80.0-100.0); Monocytes # (auto) 1.3 10 ^3/uL (0-1.3); Monocytes % (auto) 14.3 % (0.0-12.0); Neutrophils # (auto) 6.8 10 ^3/uL (1.6-8.6); Neutrophils % (auto) 72.1 % (37.0-80.0); Red Cell Distribution Width 13.8 % (11.8-14.3); White Blood Cell 9.4 10^3/uL (4.4-10.8)
[2023-03-23 19:11] LABS: Albumin 3.2 g/dL (3.4-5.0); Calcium 10.1 mg/dL (8.5-10.1)
[2023-03-23 19:15] LABS: BUN/Creatinine Ratio 15.1 (10.0-20.0); Bilirubin, Total 0.5 mg/dL (0.2-1.0); Total Protein 6.2 g/dL (6.4-8.2)
[2023-03-23] MEDS ORDERED: NITROGLYCERIN 0.4 MG SL TAB SL PRN (21:30)
[2023-03-23] MEDS ORDERED: HYDROcodone-ACET 5/325MG TAB PO PRN (21:30)
[2023-03-23] MEDS ORDERED: MORPHINE SULFATE INJ 2 MG/ml SYRG IV PRN ×2 (21:30)
[2023-03-23] MEDS ORDERED: ONDANSETRON HCL 4 MG/2 ML VIAL IV PRN (21:30)
[2023-03-23] MEDS ORDERED: DOCUSATE SOD 100 MG CAP PO PRN (21:30)
[2023-03-23] MEDS: SODIUM CHL 3% 500 ML IV ONE (21:30)
[2023-03-23 21:54] LABS: Urine Bacteria FEW /hpf (None Seen); Urine Blood Negative /uL (Negative); Urine Specific Gravity 1.008 (1.001-1.035); Urine WBC 9 /hpf (0 - 5)
[2023-03-23] MEDS: ACETAMINOPHEN 325 MG TAB PO PRN (22:12)
[2023-03-24] VITALS (7 sets, daily range): BP systolic 94–110; BP diastolic 60–67
[2023-03-24] MEDS: SODIUM CHL 3% 500 ML IV ONE (00:47)
[2023-03-24 06:10] LABS: Calcium 9.4 mg/dL (8.5-10.1); Potassium 3.3 mmol/L (3.5-5.1)
[2023-03-24 06:16] LABS: Albumin 2.9 g/dL (3.4-5.0); BUN/Creatinine Ratio 15.8 (10.0-20.0); Bilirubin, Total 0.5 mg/dL (0.2-1.0); Total Protein 5.6 g/dL (6.4-8.2)
[2023-03-24 06:23] LABS: Basophils # (auto) 0 10 ^3/uL (0-0.2); Basophils % (auto) 0.4 % (0.0-2.0); Eosinophils # (auto) 0.3 10 ^3/uL (0-0.8); Eosinophils % (auto) 3.7 % (0.0-7.0); Hematocrit 26.6 % (36.0-46.0); Hemoglobin 9.3 g/dL (12.2-16.2); Lymphocytes # (auto) 0.9 10 ^3/uL (0.4-5.4); Lymphocytes % (auto) 10.5 % (10.0-50.0); Mean Corpuscular Hemoglobin 31.9 pg (28.0-32.0); Mean Corpuscular Hgb Conc. 35.1 g/dL (32.0-36.0); Mean Corpuscular Volume 91.1 fL (80.0-100.0); Monocytes # (auto) 1.3 10 ^3/uL (0-1.3); Monocytes % (auto) 14.4 % (0.0-12.0); Neutrophils # (auto) 6.2 10 ^3/uL (1.6-8.6); Nucleated Red Blood Cells % 0.1 %; Red Blood Cells 2.92 10^6/uL (4.0-5.20); White Blood Cell 8.7 10^3/uL (4.4-10.8)
[2023-03-24] MEDS ORDERED: IPRATROPIUM BROM 0.5 MG/2.5ML INH SOL NEB PRN (09:15)
[2023-03-24] MEDS ORDERED: CARISOPRODOL 350 MG TAB PO PRN (09:30)
[2023-03-24] MEDS: FAMOTIDINE 20 MG TAB PO SCH (10:05)
[2023-03-24] MEDS: ENOXAPARIN SOD 40 MG/0.4 ML SYRINGE SC SCH (10:05)
[2023-03-24] MEDS: ACETAMINOPHEN 325 MG TAB PO PRN ×2 (10:08→18:43)
[2023-03-24] MEDS: Ensure HIGH Protein Chocolate 8oz Bottle PO SCH ×2 (12:00→18:00)
[2023-03-25 05:00] VITALS: BP 107/66
[2023-03-25] MEDS: Ensure HIGH Protein Chocolate 8oz Bottle PO SCH ×3 (07:23→18:13)
[2023-03-25 09:00] VITALS: BP 98/65
[2023-03-25] MEDS: FAMOTIDINE 20 MG TAB PO SCH (09:36)
[2023-03-25] MEDS: cefTRIAXone 1GM/50ML D5W 50 ML IV SCH (09:36)
[2023-03-25] MEDS: ENOXAPARIN SOD 40 MG/0.4 ML SYRINGE SC SCH (09:36)
[2023-03-25] MEDS: ACETAMINOPHEN 325 MG TAB PO PRN (09:37)
[2023-03-25] MEDS ORDERED: SODIUM CHL 3% 500 ML IV ONE (10:15)
[2023-03-25] MEDS ORDERED: POTASSIUM CHL 20 Meq TABLET PO ONE (10:30)
[2023-03-25 13:00] VITALS: BP 117/78
[2023-03-25 13:10] LABS: Hepatitis C Antibody Negative (Negative)
[2023-03-25 17:00] VITALS: BP 110/76
[2023-03-25 17:31] LABS: BUN/Creatinine Ratio 18.3 (10.0-20.0); Calcium 8.9 mg/dL (8.5-10.1); Potassium 4.6 mmol/L (3.5-5.1)
[2023-03-25 22:00] VITALS: BP 97/55
[2023-03-26 05:00] VITALS: BP 111/74
[2023-03-26 06:04] LABS: BUN/Creatinine Ratio 23.4 (10.0-20.0); Potassium 4.2 mmol/L (3.5-5.1)
[2023-03-26 08:45] VITALS: BP 111/74
[2023-03-26] MEDS: cefTRIAXone 1GM/50ML D5W 50 ML IV SCH (09:42)
[2023-03-26] MEDS: Ensure HIGH Protein Chocolate 8oz Bottle PO SCH ×3 (09:42→18:18)
[2023-03-26] MEDS: FAMOTIDINE 20 MG TAB PO SCH (09:42)
[2023-03-26] MEDS: ENOXAPARIN SOD 40 MG/0.4 ML SYRINGE SC SCH (09:42)
[2023-03-26 12:45] VITALS: BP 101/65
[2023-03-26 17:00] VITALS: BP 108/69
[2023-03-26 22:00] VITALS: BP 117/69
[2023-03-27 08:10] VITALS: BP 126/82
[2023-03-27] MEDS: cefTRIAXone 1GM/50ML D5W 50 ML IV SCH (08:45)
[2023-03-27] MEDS: Ensure HIGH Protein Chocolate 8oz Bottle PO SCH ×2 (08:46→13:49)
[2023-03-27 09:00] VITALS: BP 126/88
[2023-03-27] MEDS: FAMOTIDINE 20 MG TAB PO SCH (09:55)
[2023-03-27] MEDS: ENOXAPARIN SOD 40 MG/0.4 ML SYRINGE SC SCH (09:55)
[2023-03-27 11:29] VITALS: BP 126/82
== END 2023-03-27 13:30 | disposition home health service (06) | DRG 690 ==
LOC: EDBD 18:10 → ER 18:14 → TELE 21:23 → TELE-CENTR 03-24 01:10
PROVIDERS: ADMIT Internal Medicine; ATTEND Internal Medicine
PROC: 05HA33Z Insertion of Infusion Device into Left Brachial Vein, Percutaneous Approach (ICD-10-PCS; principal; 2023-03-23)
PROC: B54NZZA Ultrasonography of Left Upper Extremity Veins, Guidance (ICD-10-PCS; 2023-03-23)
DX: N30.00 Acute cystitis without hematuria (principal); E87.1 Hypo-osmolality and hyponatremia; A04.72 Enterocolitis due to Clostridium difficile, not specified as recurrent; E78.5 Hyperlipidemia, unspecified; Z20.822 Contact with and (suspected) exposure to COVID-19; Z79.899 Other long term (current) drug therapy
CPT/HCPCS: 36415; 71045; 80048; 80053; 81001; 83935; 84300; 84484; 85025; 86803; 87081; 87340; 87426; 93005; 96360; 96372; 97110; 97116; 97163; 97530; G0378; J0696

== ENCOUNTER 2023-12-23 08:29 | Emergency (ER) | payer MEDICARE, OTHER ==
[~2023-12-23] VITALS: Ht 154.9 cm; Wt 53.1 kg
[~2023-12-23 08:29] MED LIST changes: -CIPR-173 PO; -DOXY1CAP57 PO; -FENO145T27 PO; -LEVO500T31 PO; -METR500T PO; -VANC250PO PO
[2023-12-23] MEDS ORDERED: AZIT1POW PO (14:40)
[2023-12-23 15:13] LABS: COVID19 ANTIGEN SOFIA FIA NEGATIVE (NEGATIVE); Rapid Influenza A Negative (Negative); Rapid Influenza B Negative (Negative)
[2023-12-23 15:25] VITALS: BP 121/80; PULSE 94; RESP 18; TEMP 97.9; O2SAT 96
== END 2023-12-23 15:27 | disposition home or self-care (01) ==
LOC: ER 08:29
DX: J20.9 Acute bronchitis, unspecified (principal); R07.89 Other chest pain; I11.0 Hypertensive heart disease with heart failure; I50.9 Heart failure, unspecified; E78.5 Hyperlipidemia, unspecified; J45.909 Unspecified asthma, uncomplicated; Z79.2 Long term (current) use of antibiotics; Z79.899 Other long term (current) drug therapy; Z20.822 Contact with and (suspected) exposure to COVID-19
CPT/HCPCS: 36415; 71046; 87426; 87804

== ENCOUNTER 2025-03-06 09:54 | Emergency (ER) | payer MEDICARE, OTHER ==
[~2025-03-06] VITALS: Ht 154.9 cm; Wt 51.9 kg
[~2025-03-06 09:54] MED LIST changes: +AZIT1POW PO
[2025-03-06] MEDS: ALBUTEROL SULF 2.5 MG/0.5ML(0.5%) NEB SOLN NEB ONE (10:31)
[2025-03-06] MEDS: IPRATROPIUM BROM 0.5 MG/2.5ML INH SOL NEB ONE (10:31)
[2025-03-06] MEDS: ACETAMINOPHEN 325 MG TAB PO ONE (10:33)
[2025-03-06] MEDS: methylPREDNISolone SOD SUCC 40 MG/ML VL IV ONE (10:40)
[2025-03-06] MEDS: methylPREDNISolone SOD SUCC 125 MG/2 ML VL IV ONE (10:42)
[2025-03-06 11:04] LABS: Basophils # (auto) 0 10 ^3/uL (0-0.2); Basophils % (auto) 0.2 % (0.0-2.0); Eosinophils # (auto) 0.1 10 ^3/uL (0-0.8); Eosinophils % (auto) 0.4 % (0.0-7.0); Hematocrit 36.2 % (36.0-46.0); Hemoglobin 12.2 g/dL (12.2-16.2); Lymphocytes # (auto) 0.5 10 ^3/uL (0.4-5.4); Lymphocytes % (auto) 4.2 % (10.0-50.0); Mean Corpuscular Hemoglobin 30.8 pg (28.0-32.0); Mean Corpuscular Hgb Conc. 33.6 g/dL (32.0-36.0); Mean Corpuscular Volume 91.5 fL (80.0-100.0); Monocytes # (auto) 0.4 10 ^3/uL (0-1.3); Monocytes % (auto) 2.8 % (0.0-12.0); Neutrophils # (auto) 11.6 10 ^3/uL (1.6-8.6); Neutrophils % (auto) 92.4 % (37.0-80.0); Platelet Count (auto) 302 10^3/uL (140-450); Red Blood Cells 3.96 10^6/uL (4.0-5.20); Red Cell Distribution Width 13.5 % (11.8-14.3); White Blood Cell 12.6 10^3/uL (4.4-10.8)
[2025-03-06 11:11] LABS: Chloride 100 mmol/L (98-107); Potassium 3.9 mmol/L (3.5-5.1)
[2025-03-06 11:12] LABS: Anion Gap 9 (5-15); Calcium 11.5 mg/dL (8.7-10.4); Carbon Dioxide 26 mmol/L (20-31); Sodium 135 mmol/L (136-145)
[2025-03-06 11:17] LABS: BUN/Creatinine Ratio 12.4 (10.0-20.0); Blood Urea Nitrogen 15 mg/dL (9-23); Glucose 107 mg/dL (74-106)
--- NOTE | 2025-03-06 11:22 | DVH ---
CLINICAL INFORMATION: Chest tightness, fever. TECHNIQUE: Single AP portable chest radiograph was obtained. COMPARISON: XY CHEST PORTABLE on DOS: 03/23/23, XY CHEST PORTABLE on DOS: 03/14/23, CHEST PORTABLE on D OS: 09/07/20 FINDINGS: Lungs: Atelectasis in the lung bases. No focal consolidation visualized. Cardiac: Heart size is within normal limits. Pulmonary vasculature: Unremarkable. Mediastinum/meir: Moderate atherosclerotic calcification of the aortic arch. Bones: No acute osseous abnormality identified. Other: No other significant findings. IMPRESSION: Bibasilar atelectasis. No focal consolidation or other acute radiographic abnormality identified in t he chest.
[2025-03-06] MEDS ORDERED: ALBU108A5 IN (11:50)
[2025-03-06] MEDS ORDERED: LEVO500T91 PO (11:50)
[2025-03-06] MEDS ORDERED: PRED20TA2 PO (11:50)
--- NOTE | 2025-03-06 11:50 | ED.PDOC ---
History of Present Illness HPI Comments 44-year-old female with a history of asthma, CHF, hypertension brought in by family complaining of fever since last night, associated with chest tightness, dry cough and diarrhea. She denies any nausea, vomiting, dysuria or edema. She denies any sick contacts. She states she has not tried using her inhaler. She is not on home oxygen. Chief Complaint: Fever Time Seen by MD: 10:03 Primary Care Provider: LEONEL Allergies: Coded Allergies: NO KNOWN ALLERGIES (Unverified , 09/02/20) Home Meds Active Scripts Levofloxacin Hemihydrate (LEVAQUIN 500 MG) 500 Mg Tab, 1 TAB PO DAILY, #7 TAB Prov:LAUREN CHO MD 03/06/25 Prednisone (Prednisone) 20 Mg Tab, 40 MG PO DAILY for 4 Days, #8 TAB Start Friday03/07/25 Prov:LAUREN CHO MD 03/06/25 Albuterol Sulfate (Albuterol Sulfate Hfa) 108 Mcg/Act Aer, 2 PUFF IN Q6HP PRN, #1 AER Prn chest tightness or difficulty breathing Prov:LAUREN CHO MD 03/06/25 Azithromycin (Zithromax) 1 Gm Pow, 1 PACK PO ONCE, #1 PACK Prov:DENNISE NGUYEN MD 12/23/23 Reported Medications Albuterol Sulfate (Albuterol Sulfate) 2 Mg Tab, 90 MCG IN PRN PRN for SHORTNESS OF BREATH, MG 09/03/20 Ferrous Fumarate (Iron) 18 Mg Tab, 18 MG PO DAILY, TAB 09/03/20 Budesonide (Inhalation) (Budesonide) 1 Mg/2 Ml Caren, 160 MCG IN PRN PRN for SHORTNESS OF BREATH, ML 09/03/20 Mode of Arrival: Ambulatory Past Medical History PAST MEDICAL HISTORY: Asthma, CHF, High Lipids, HTN Surgical History: Denies all surgeries SHEET METAL ENGINEER History: Denies all SHEET METAL ENGINEER Hx Family History Family History: Unobtainable Social History Smoker: Non-Smoker Alcohol: Rarely Drugs: Denies Drug Use Lives In: Home All Other Systems: Reviewed and Negative (Comprehensive systems review obtained and negative except for what is stated in the HPI.) Physical Exam General Appearance: No Apparent Distress HEENT: Other (Pupils and face symmetric. Moist mucous membranes.) Neck: Full Range of Motion, Normal Inspection Respiratory: Decreased Breath Sounds, No Accessory Muscle Use, No Respiratory D istress Cardiovascular: No Edema, No JVD, Regular Rate/Rhythm Breast Exam: Deferred Gastrointestinal: Non Tender, Soft Genitalia: Deferred Pelvic: Deferred Rectal: Deferred Extremities: No calf tenderness, Normal inspection, Normal range of motion, Non-tender, No pedal edema Neurologic: Alert (Oriented x4), Normal Affect, Normal Mood, Other (Ambulatory without difficulty) Cerebellar Function: NOT DONE Reflexes: NOT DONE Skin: Dry, Normal Color, Warm Lymphatic: NOT DONE Was a procedure done? Was a procedure done?: No Differential Dx Considerations may include: Asthma, bronchitis, CHF, ACS, [place], arrhythmia, among others X-Ray, Labs, Meds, VS Vital Signs Date Time Temp Pulse Resp B/P (MAP) Pulse Ox O2 Delivery O2 Flow Rate FiO2 03/06/25 12:06 98.6 111 18 132/90 (104) 95 98.6 03/06/25 12:06 111 18 95 Room Air 03/06/25 11:59 98.3 03/06/25 11:57 104 03/06/25 10:32 18 98 Room Air* 0 21 03/06/25 10:20 99.9 121 18 139/92 (108) 93 99.9 Lab Test 03/06/25 11:35 03/06/25 10:39 Range/Units Troponin I High Sensitivity 26 25 </=34 ng/L White Blood Count 12.6 H 4.4-10.8 10^3/uL Red Blood Count 3.96 L 4.0-5.20 10^6/uL Hemoglobin 12.2 12.2-16.2 g/dL Hematocrit 36.2 36.0-46.0 % Mean Corpuscular Volume 91.5 80.0-100.0 fL Mean Corpuscular Hemoglobin 30.8 28.0-32.0 pg Mean Corpuscular Hemoglobin Concent 33.6 32.0-36.0 g/dL Red Cell Distribution Width 13.5 11.8-14.3 % Platelet Count 302 140-450 10^3/uL Mean Platelet Volume 8.9 6.9-10.8 fL Neutrophils (%) (Auto) 92.4 H 37.0-80.0 % Lymphocytes (%) (Auto) 4.2 L 10.0-50.0 % Monocytes (%) (Auto) 2.8 0.0-12.0 % Eosinophils (%) (Auto) 0.4 0.0-7.0 % Basophils (%) (Auto) 0.2 0.0-2.0 % Neutrophils # (Auto) 11.6 H 1.6-8.6 10 ^3/uL Lymphocytes # (Auto) 0.5 0.4-5.4 10 ^3/uL Monocytes # (Auto) 0.4 0-1.3 10 ^3/uL Eosinophils # (Auto) 0.1 0-0.8 10 ^3/uL Basophils # (Auto) 0 0-0.2 10 ^3/uL Nucleated Red Blood Cells 0.0 % Sodium Level 135 L 136-145 mmol/L Potassium Level 3.9 3.5-5.1 mmol/L Chloride Level 100 98-107 mmol/L Carbon Dioxide Level 26 20-31 mmol/L Anion Gap 9 5-15 Blood Urea Nitrogen 15 9-23 mg/dL Creatinine 1.21 H 0.550-1.02 mg/dL Glomerular Filtration Rate Calc 46 >90 mL/min BUN/Creatinine Ratio 12.4 10.0-20.0 Serum Glucose 107 H 74-106 mg/dL Calcium Level 11.5 H 8.7-10.4 mg/dL B-Type Natriuretic Peptide 62.32 0-100 pg/mL Current Medications Medications (Trade) Dose Ordered Sig/Meghana Route Start Time Stop Time Status Last Admin Albuterol (Ventolin Medneb) 5 mg ONCE ONCE NEB 03/06/25 10:15 03/06/25 10:17 DC 03/06/25 10:31 Ipratropium [place] (Atrovent Medneb) 0.5 mg ONCE ONCE NEB 03/06/25 10:15 03/06/25 10:17 DC 03/06/25 10:31 Acetaminophen (Tylenol Tablet) 650 mg ONCE ONCE PO 03/06/25 10:15 03/06/25 10:17 DC 03/06/25 10:33 Methylprednisolone Sodium Succinate (Solu Medrol) 40 mg ONCE ONCE IV 03/06/25 10:45 03/06/25 10:46 DC 03/06/25 10:40 PROCEDURE(s): CXRP - CHEST PORTABLE REASON: chest tight, fever ORDER NUMBER(s): [id number], ACCESSION NUMBER(s): [id number] CLINICAL INFORMATION: Chest tightness, fever. TECHNIQUE: Single AP portable chest radiograph was obtained. COMPARISON: XY CHEST PORTABLE on DOS: 03/23/23, XY CHEST PORTABLE on DOS: 03/14/23, CHEST PORTABLE on DOS: 09/07/20 FINDINGS: Lungs: Atelectasis in the lung bases. No focal consolidation visualized. Cardiac: Heart size is within normal limits. Pulmonary vasculature: Unremarkable. Mediastinum/meir: Moderate atherosclerotic calcification of the aortic arch. Bones: No acute osseous abnormality identified. Other: No other significant findings. IMPRESSION: Bibasilar atelectasis. No focal consolidation or other acute radiographic abnormality identified in the chest. ATED BY: MANUEL KWONG DO X-Ray, Labs, Meds, VS Comment 74-year-old female with a history of asthma, hypertension brought in by family complaining of chest tightness and fever associated with cough. Vitals remarkable for temperature 99.9�, heart rate 121, respiratory rate is normal at 18, BP 139/92, oxygen saturation 93% on room air Exam remarkable for diminished breath sounds at bilateral bases. No respiratory distress. Rhythm strip independently interpreted by me: Sinus rhythm, rate 95, no ectopy. CBC remarkable for WBC 12.6, metabolic panel remarkable for sodium 135, creatinine 1.21, BNP normal, troponin negative Patient treated with the following in the ED: Albuterol 5 mg/Atrovent 0.5 mg nebulized, Solu-Medrol 125 mg IV, Tylenol 650 mg p.o. Re-evaluation, patient states her chest tightness has resolved. She is not short of breath, she saturating 98% on room air and other vitals are stable. Hospitalization was considered, however patient had rapid improvement of symptoms with treatment in the ED, and I no longer feel hospitalization is necessary. Patient now appears stable for discharge with close follow-up with her primary physician. I will cover her with oral antibiotics for possible bacterial respiratory infection. Rx ProAir, prednisone, Tylenol, levaquin Time of 1ST Reevaluation: 11:45 Reevaluation 1ST: Improved Patient Education/Counseling: Diagnosis, Treatment, Need For Follow Up Family Education/Counseling: No Family Present Departure 1 Departure Time of Disposition: 11:45 Impression: Primary Impression: Asthma exacerbation Qualified Codes: J45.901 - Unspecified asthma with (acute) exacerbation Additional Impressions: Febrile illness Acute cough Disposition: HOME / SELF CARE / HOMELESS Condition: Stable Additional Instructions: Your blood tests, including screening test for heart attack and heart failure, were unremarkable except for a slightly elevated white blood cell count, which may indicate you have an infection. Your chest x-ray was unremarkable. I have prescribed antibiotics for a possible respiratory bacterial infection, as well as a fever oil exploration engineer, an inhaler, and steroids to decrease lung inflammation and help you breathe better. Follow-up with your primary doctor in 1-2 days. Return to ER for persistent or worsening symptoms. e-Prescriptions Levofloxacin Hemihydrate (LEVAQUIN 500 MG) 500 Mg Tab 1 TAB PO DAILY, #7 TAB Prov: LAUREN CHO MD 03/06/25 Prednisone (Prednisone) 20 Mg Tab 40 MG PO DAILY for 4 Days, #8 TAB Start Friday03/07/25 Prov: LAUREN CHO MD 03/06/25 Albuterol Sulfate (Albuterol Sulfate Hfa) 108 Mcg/Act Aer 2 PUFF IN Q6HP PRN, #1 AER Prn chest tightness or difficulty breathing Prov: LAUREN CHO MD 03/06/25 Discharged With: Relative Critical Care Note Critical Care Time?: No Stability Stability form required: No Heart Score Heart Score: Heart Score Response (Comments) Value History Slightly Suspicious 0 EKG Repolarization Disturb 1 Age >65 2 Risk Factors 1 or 2 risk factors 1 Troponin Normal limit 0 Total 4 LAUREN CHO MD March 06, 2025 11:50
--- NOTE | 2025-03-06 11:59 | ECG ---
[facility] Test Date: 2025-03-06 Test Time: 11:57:55 Pat Name: BARRERA OLSEN Department: ER Room: Gender: F Tester Sound: MAURICIO : 1950 Requested By: LAUREN GUZMAN Order Number: [id number] Reading MD: Lawrence Sahu Measurements Intervals [place] Rate: 104 P: 54 [place]: 186 QRS: 64 QRSD: 88 T: -7 QT: 336 QTc: 442 Interpretive Statements Sinus tachycardia Ventricular premature complex Probable inferior infarct, age indeterminate Lateral leads are also involved Electronically Signed On 03-09-2025 12:43:30 PDT by Lawrence Sahu Please click the below link to view image of tracing.
[2025-03-06 12:06] VITALS: BP 132/90; PULSE 111; RESP 18; TEMP 98.6; O2SAT 95
== END 2025-03-06 11:56 | disposition home or self-care (01) ==
LOC: ER 10:10
DX: J45.901 Unspecified asthma with (acute) exacerbation (principal); R50.9 Fever, unspecified; E78.5 Hyperlipidemia, unspecified; I11.0 Hypertensive heart disease with heart failure; I50.9 Heart failure, unspecified; Z79.52 Long term (current) use of systemic steroids; Z79.899 Other long term (current) drug therapy
CPT/HCPCS: 36415; 71045; 80048; 83880; 84484; 85025; 93005; 94640; 96374; 99285; J2919